=== PATIENT | male | born 1950 | race Caucasian/White ===

== ENCOUNTER 2020-09-11 11:05 | Outpatient (CLI) | payer MEDICARE, BC ==
--- NOTE | 2020-09-11 19:56 | RAD ---
CERVICAL SPINE THREE VIEWS: 09/11/20 No prior films are available for comparison. There is marked reversal of the normal cervical lordosis . Severe degenerative changes are present involving C4, C5 and C6, as well as the C6-C7 disc space. T he C5 superior end plate is downsloping. This could be due to an old injury or simply wear and tear o low time due to the degenerative change. All disc spaces are narrowed from C4 through C7. The soft ti ssues are normal in thickness. No acute fracture was seen. Minor anterior subluxation of C3 on C4 is due to the flexed state of the neck. The C1 to dens distance is normal. IMPRESSION: Advanced reversal of cervical lordosis. Severe multilevel degenerative disc disease. POS: HOME
== END 2020-09-11 11:06 | disposition home or self-care (01) ==
LOC: BURRAD 11:05
PROVIDERS: ATTEND Family Medicine
DX: M54.2 Cervicalgia (principal); M50.30 Other cervical disc degeneration, unspecified cervical region
CPT/HCPCS: 72040

== ENCOUNTER 2020-11-10 14:43 | Outpatient (CLI) | payer MEDICARE, BC | END 2020-11-10 14:44 | disposition home or self-care (01) | LOC: BURRAD 14:43 | PROVIDERS: ATTEND Neurological Surgery | DX: M47.812 Spondylosis without myelopathy or radiculopathy, cervical region (principal) | CPT/HCPCS: 72040 ==

== ENCOUNTER 2021-06-28 10:59 | Inpatient (IN) | payer MEDICARE, BC ==
[2021-06-28 11:40] LABS: #Basophils 0.2 thou/uL (0.0-0.2); #Eosinphils 0.2 thou/uL (0.0-0.7); #Lymphocytes 1.3 thou/uL (1.20-3.40); #Monocytes 1.1 thou/uL (0.11-0.59); %Basophils 1.3 % (0.0-1.0); %Eosinophils 1.2 % (0.0-10.0); %Lymphocytes 9.2 % (21.0-51.0); %Monocytes 7.9 % (0.0-10.0); %Neutrophils 80.5 % (42.0-75.0); Hemoglobin 19.4 g/dL (14.0-18.0); Mean Corpuscular HGB CONC 33.9 g/dL (32.0-36.0); Mean Corpuscular Hemoglobin 31.6 pg (27.0-31.0); Mean Corpuscular Volume 93.2 fL (78.0-98.0); Mean Platelet Volume 7.8 fL (7.4-10.4); Platelet Count 330 thou/uL (130-400); RBC Distribution Width 12.1 % (11.5-14.5); Red Blood Cell (RBC) Count 6.13 mill/uL (4.70-6.10); White Blood Cell (WBC) Count 13.6 thou/uL (4.8-10.8)
[2021-06-28] MEDS ORDERED: methylPREDNISolone Sod Succ/PF 125 MG/2 ML VIAL ONE (11:46)
[2021-06-28 12:21] LABS: ALT (SGPT) 48 U/L (8-55); AST (SGOT) 42 U/L (5-34); Albumin 4.3 g/dL (3.4-4.8); Alkaline Phosphatase 99 U/L (40-110); Anion Gap 18 mmol/L (10-20); BUN (Urea Nitrogen) 41 mg/dL (8.4-25.7); Bilirubin, Total 0.8 mg/dL (0.2-1.2); Calc. Creatinine Clearance 0 mL/min (70-130); Carbon Dioxide 28 mmol/L (23-31); Chloride 101 mmol/L (98-107); Globulin 3.6 g/dL (2.4-3.5); Glucose 105 mg/dL (80-115); Potassium 3.7 mmol/L (3.5-5.1); Protein, Total 7.9 g/dL (5.8-8.1); Sodium 143 mmol/L (136-145)
[2021-06-28 12:30] LABS: SARS-CoV-2 NAA Rapid Test Not Detected (NotDetected)
[2021-06-28] MEDS ORDERED: cefTRIAXone\\ROCEPHIN 2 GM VIAL ONE (13:09)
[2021-06-28] MEDS ORDERED: Azithromycin 500 MG VIAL ONE (13:09)
[2021-06-28] MEDS ORDERED: Sodium Chloride 0.9% 100 ML ONE (13:10)
[2021-06-28 14:51] VITALS: BMI 27.8
[2021-06-28] MEDS ORDERED: Acetaminophen 325 MG TAB PO PRN (15:15)
[2021-06-28] MEDS ORDERED: Ondansetron PF 4 MG/2 ML Vial IVP PRN (15:15)
[2021-06-28] MEDS ORDERED: Ondansetron ODT 4 MG TAB SL PRN (15:15)
[2021-06-28] MEDS ORDERED: FLU VACC QS2021-22(65YR UP)/PF 240 MCG/0.7 ML SYRINGE IM ONE (16:30)
[2021-06-28] MEDS: Albuterol Sulfate 2.5 mg/3 ml Neb NEB PRN ×2 (16:54→21:08)
[2021-06-28] MEDS: Enoxaparin Sodium 40 MG/0.4 ML SYRINGE SC SCH (21:08)
[2021-06-29] MEDS: Albuterol Sulfate 2.5 mg/3 ml Neb NEB PRN ×3 (03:55→17:58)
[2021-06-29 06:22] LABS: #Lymphocytes 1.4 thou/uL (1.20-3.40); #Monocytes 1.4 thou/uL (0.11-0.59); #Neutrophils 12.4 thou/uL (1.40-6.50); %Basophils 0.3 % (0.0-1.0); %Eosinophils 0.2 % (0.0-10.0); %Lymphocytes 9.4 % (21.0-51.0); %Monocytes 9.3 % (0.0-10.0); %Neutrophils 80.9 % (42.0-75.0); Hemoglobin 17.3 g/dL (14.0-18.0); Mean Corpuscular HGB CONC 33.9 g/dL (32.0-36.0); Mean Corpuscular Hemoglobin 31.7 pg (27.0-31.0); Mean Corpuscular Volume 93.4 fL (78.0-98.0); Mean Platelet Volume 7.3 fL (7.4-10.4); Platelet Count 267 thou/uL (130-400); RBC Distribution Width 12.1 % (11.5-14.5); Red Blood Cell (RBC) Count 5.48 mill/uL (4.70-6.10); White Blood Cell (WBC) Count 15.3 thou/uL (4.8-10.8)
[2021-06-29] MEDS: Atorvastatin Calcium 40 MG TAB PO SCH (09:37)
[2021-06-29] MEDS: Azithromycin 250 MG TAB PO SCH (09:37)
[2021-06-29] MEDS: Hydrochlorothiazide 25 MG TAB PO SCH (09:37)
[2021-06-29] MEDS: Losartan Potassium 50 MG TAB PO SCH (09:37)
[2021-06-29 12:33] LABS: Anion Gap 12 mmol/L (10-20); BUN (Urea Nitrogen) 35 mg/dL (8.4-25.7); Calc. Creatinine Clearance 90 mL/min (70-130); Carbon Dioxide 32 mmol/L (23-31); Chloride 101 mmol/L (98-107); Sodium 142 mmol/L (136-145)
[2021-06-29 12:34] LABS: ALT (SGPT) 35 U/L (8-55); AST (SGOT) 30 U/L (5-34); Albumin 3.6 g/dL (3.4-4.8); Alkaline Phosphatase 73 U/L (40-110); Bilirubin, Total 0.4 mg/dL (0.2-1.2); Calcium 9.2 mg/dL (7.8-10.44); Globulin 3.1 g/dL (2.4-3.5); Glucose 118 mg/dL (80-115); Protein, Total 6.7 g/dL (5.8-8.1)
[2021-06-29 12:55] LABS: Potassium 2.9 mmol/L (3.5-5.1)
[2021-06-29] MEDS ORDERED: Potassium Chloride 20 MEQ TAB PO SCH (13:15)
[2021-06-29] MEDS: methylPREDNISolone Sod Succ 40 MG VIAL IVP SCH ×2 (13:40→21:28)
[2021-06-29] MEDS ORDERED: cefTRIAXone\\ROCEPHIN 1 GM in Sodium Chloride 0.9% 100 ML IVPB SCH (14:00)
[2021-06-29] MEDS ORDERED: Azithromycin 500 MG in Sodium Chloride 0.9% 250 ML 250 ML IVPB SCH (15:00)
[2021-06-29] MEDS: Enoxaparin Sodium 40 MG/0.4 ML SYRINGE SC SCH (21:30)
[2021-06-29] MEDS: Mometasone/Formoterol 200/5 60 PUFF INH SCH (21:32)
[2021-06-30] MEDS: Albuterol Sulfate 2.5 mg/3 ml Neb NEB PRN ×2 (01:44→05:51)
[2021-06-30 05:21] LABS: ALT (SGPT) 40 U/L (8-55); AST (SGOT) 30 U/L (5-34); Albumin 3.6 g/dL (3.4-4.8); Alkaline Phosphatase 71 U/L (40-110); Anion Gap 15 mmol/L (10-20); BUN (Urea Nitrogen) 37 mg/dL (8.4-25.7); Bilirubin, Total 0.4 mg/dL (0.2-1.2); Calc. Creatinine Clearance 84 mL/min (70-130); Calcium 9.9 mg/dL (7.8-10.44); Carbon Dioxide 27 mmol/L (23-31); Chloride 106 mmol/L (98-107); Globulin 2.6 g/dL (2.4-3.5); Glucose 223 mg/dL (80-115); Potassium 3.7 mmol/L (3.5-5.1); Protein, Total 6.2 g/dL (5.8-8.1); Sodium 144 mmol/L (136-145)
[2021-06-30] MEDS: methylPREDNISolone Sod Succ 40 MG VIAL IVP SCH ×3 (05:39→21:31)
[2021-06-30] MEDS: Hydrochlorothiazide 25 MG TAB PO SCH (09:32)
[2021-06-30] MEDS: Atorvastatin Calcium 40 MG TAB PO SCH (09:32)
[2021-06-30] MEDS: Losartan Potassium 50 MG TAB PO SCH (09:32)
[2021-06-30] MEDS: Azithromycin 250 MG TAB PO SCH (09:33)
[2021-06-30] MEDS: Mometasone/Formoterol 200/5 60 PUFF INH SCH ×2 (09:33→22:00)
[2021-06-30] MEDS: Enoxaparin Sodium 40 MG/0.4 ML SYRINGE SC SCH (21:32)
[2021-07-01] MEDS: methylPREDNISolone Sod Succ 40 MG VIAL IVP SCH ×2 (05:40→10:28)
[2021-07-01] MEDS: predniSONE 20 MG TAB PO SCH ×3 (09:17→17:21)
[2021-07-01] MEDS: Hydrochlorothiazide 25 MG TAB PO SCH (09:18)
[2021-07-01] MEDS: Atorvastatin Calcium 40 MG TAB PO SCH (09:19)
[2021-07-01] MEDS: Azithromycin 250 MG TAB PO SCH (09:20)
[2021-07-01] MEDS: Losartan Potassium 50 MG TAB PO SCH (09:20)
[2021-07-01] MEDS: Mometasone/Formoterol 200/5 60 PUFF INH SCH ×2 (09:30→20:12)
[2021-07-01] MEDS: guaiFENesin/DM ER PO SCH ×2 (10:28→20:09)
[2021-07-01] MEDS: Enoxaparin Sodium 40 MG/0.4 ML SYRINGE SC SCH (20:09)
[2021-07-02 06:12] VITALS: TEMP 98.2
[2021-07-02] MEDS: Losartan Potassium 50 MG TAB PO SCH (09:28)
[2021-07-02] MEDS: guaiFENesin/DM ER PO SCH (09:28)
[2021-07-02] MEDS: Hydrochlorothiazide 25 MG TAB PO SCH (09:29)
[2021-07-02] MEDS: Azithromycin 250 MG TAB PO SCH (09:29)
[2021-07-02] MEDS: Atorvastatin Calcium 40 MG TAB PO SCH (09:29)
[2021-07-02] MEDS: predniSONE 20 MG TAB PO SCH ×2 (09:29→18:00)
[2021-07-02] MEDS: Mometasone/Formoterol 200/5 60 PUFF INH SCH (09:30)
[2021-07-02 18:10] VITALS: BP 134/76
== END 2021-07-02 18:53 | disposition home or self-care (01) | DRG 190 ==
LOC: BURERS 10:59 → BURMED 13:05
PROVIDERS: ADMIT Family Medicine; ATTEND Family Medicine
DX: J44.1 Chronic obstructive pulmonary disease with (acute) exacerbation (principal); J18.9 Pneumonia, unspecified organism; Z20.822 Contact with and (suspected) exposure to COVID-19; I10 Essential (primary) hypertension; J44.0 Chronic obstructive pulmonary disease with (acute) lower respiratory infection; M50.30 Other cervical disc degeneration, unspecified cervical region; E78.5 Hyperlipidemia, unspecified; Z87.891 Personal history of nicotine dependence; Z90.89 Acquired absence of other organs; Z98.890 Other specified postprocedural states
CPT/HCPCS: 0240U; 36415; 71046; 80053; 83605; 83880; 84484; 85025; 87040; 87077; 87149; 87186; 93005; 94640; 94664; 96365; 96375; J0456; J0696; J1650; J2920; J2930; J3490; J7512; J7611; J7620

== ENCOUNTER 2022-07-18 13:34 | Emergency (ER) | payer MEDICARE, BC ==
[2022-07-18] MEDS ORDERED: Dexamethasone 10 MG/ML VIAL ONE (14:55)
[2022-07-18] MEDS ORDERED: Doxycycline 100 MG CAP ONE (14:55)
== END 2022-07-18 15:06 | disposition home or self-care (01) ==
LOC: BURERS 13:34
DX: J44.1 Chronic obstructive pulmonary disease with (acute) exacerbation (principal); I10 Essential (primary) hypertension; E78.5 Hyperlipidemia, unspecified; Z87.891 Personal history of nicotine dependence; Z79.899 Other long term (current) drug therapy
CPT/HCPCS: 96372; 99284; J1100